=== PATIENT | female | born 1960 | race Caucasian/White ===

== ENCOUNTER 2018-04-08 13:25 | Observation (INO) | payer BC ==
[2018-04-08 14:20] LABS: #Lymphocytes 1.9 thou/uL (1.20-3.40); #Monocytes 0.3 thou/uL (0.11-0.59); %Basophils 0.5 % (0.0-1.0); %Eosinophils 0.1 % (0.0-10.0); %Lymphocytes 46.1 % (21.0-51.0); %Monocytes 6.7 % (0.0-10.0); %Neutrophils 46.7 % (42.0-75.0); Hemoglobin 13.6 g/dL (12.0-16.0); Mean Corpuscular HGB CONC 33.5 g/dL (32.0-36.0); Mean Corpuscular Hemoglobin 30.4 pg (27.0-31.0); Mean Corpuscular Volume 90.6 fL (78.0-98.0); Mean Platelet Volume 7.4 fL (7.4-10.4); Platelet Count 270 thou/uL (130-400); RBC Distribution Width 11.6 % (11.5-14.5); Red Blood Cell (RBC) Count 4.47 mill/uL (4.20-5.40); White Blood Cell (WBC) Count 4.2 thou/uL (4.8-10.8)
--- NOTE | 2018-04-08 14:38 | RAD ---
PORTABLE CHEST: Date: 04/08/18 HISTORY: Fall with back pain. FINDINGS: Heart size and mediastinum are within normal limits. Lungs are clear of infiltrates. No rib fractures identified. IMPRESSION: No active intrathoracic disease. POS: [facility]
[2018-04-08 14:44] LABS: ALT (SGPT) 23 U/L (8-55); AST (SGOT) 22 U/L (5-34); Albumin 4.1 g/dL (3.5-5.0); Alkaline Phosphatase 80 U/L (40-150); Anion Gap 14 mmol/L (10-20); BUN (Urea Nitrogen) 14 mg/dL (9.8-20.1); Bilirubin, Total 0.4 mg/dL (0.2-1.2); Calc. Creatinine Clearance 0 mL/min (70-130); Calcium 9.6 mg/dL (7.8-10.44); Carbon Dioxide 24 mmol/L (22-29); Chloride 105 mmol/L (98-107); Estimated GFR-MDRD 69; Glucose 169 mg/dL (70-105); Lipase 28 U/L (8-78); Potassium 3.8 mmol/L (3.5-5.1); Protein, Total 7.1 g/dL (6.0-8.3); Sodium 139 mmol/L (136-145)
[2018-04-08] MEDS ORDERED: Aspirin Chewable 81 MG TAB ONE (14:49)
--- NOTE | 2018-04-08 16:46 | MRI ---
LUMBAR SPINE MRI NONCONTRAST: 04/08/18 INDICATION: Emergency exam. Progressive low back pain, multiple falls. Leg weakness. FINDINGS: Multilevel end plate degenerative change with Schmorl's node formation and Modic degenerative signal alteration, predominantly type I. There are multilevel end plate osteophytes with associated disc spa ce narrowing throughout the lumbar spine. Conus medullaris terminates at the L1 level. There is multi level bilateral moderate facet osteoarthritis. T12-L1: There is a left paracentral disc protrusion with slight effacement of ventral thecal sac. No direct mass effect upon conus medullaris. L1-2: Broad based disc osteophyte results in mild central canal stenosis. No high grade foraminal com promise. L2-3: Mild central canal stenosis results in broad based disc osteophyte. This does result in crowdin g of the bilateral traversing L3 nerve roots. There is minimal narrowing of the left neural foramen. No significant right frontal stenosis. L3-4: There is mild retrolisthesis with associated broad based disc osteophyte. This results in mild to moderate central canal stenosis. There is mild right foraminal narrowing. No high grade left rusty inal stenosis. L4-5: There is moderate central canal stenosis with crowding of the bilateral traversing L5 nerve marlin ts as the result of broad based disc osteophyte combined with bilateral degenerative facet hypertroph y. Moderate bilateral neural foraminal stenosis present. L5-S1: There is no significant central canal or neural foraminal stenosis. IMPRESSION: Multilevel degenerative change of the lumbar spine, as detailed above. POS: [facility]
--- NOTE | 2018-04-08 17:12 | PDOC.FPRHP ---
- History of Present Illness Chief Complaint: Chest pain History of Present Illness: This is a 58 yo female with a pmh of HLD, HTN, kidney stones, diverticulitis who present to the ED from Dr. Romero office (PCP) with a cc of chest pain and multiple falls. She reports chest pain for the last few months that comes and goes. She reports the pain mainly as a pressure, "like someone squeezing my heart." She states the pain is about a 4/10 with associated sweating. During the episodes she denies radiation, nausea, SOB, syncope, or dizziness. She reports the pain is better with rest. She states that for the last three months , she has been out of her blood pressure medication due to insurance. Pt reports mulitiple episodes of her leg giving out. She reports associated lower leg paresthesias. Pt also reports recent episodes of urinary and bowel incontinence. She reports lower leg weakness, worse in the right leg. ED Course: Aspirin 325 - Allergies/Adverse Reactions Allergies Allergy/AdvReac Type Severity Reaction Status Date / Time acetaminophen [From [place]] Allergy Verified 04/08/18 19:04 hydrocodone [From [place]] Allergy Verified 04/08/18 19:04 lisinopril Allergy Verified 04/08/18 19:04 Penicillins Allergy Verified 04/08/18 19:04 - Home Medications Medication Instructions Recorded Confirmed Type Aspirin 325 mg PO DAILY 04/08/18 04/08/18 History Atorvastatin Calcium [Lipitor] 20 mg PO DAILY 04/08/18 04/08/18 History Cholecalciferol (Vitamin D3) 5,000 unit PO DAILY 04/08/18 04/08/18 History [Vitamin D3] Gabapentin 900 mg PO HS 04/08/18 04/08/18 History Melatonin 10 mg PO HS PRN 04/08/18 04/08/18 History Meloxicam [Mobic] 15 mg PO DAILY 04/08/18 04/08/18 History Metoprolol Succinate [Toprol XL] 100 mg PO DAILY 04/08/18 04/08/18 History Vitamin B Complex [B Complex] 1 tablet PO DAILY 04/08/18 04/08/18 History amLODIPine Besylate [Norvasc] 10 mg PO DAILY 04/08/18 04/08/18 History clonazePAM [Klonopin] 0.5 mg PO HS 04/08/18 04/08/18 History traMADol HCl [Tramadol HCl] 50 mg PO DAILY 04/08/18 04/08/18 History - History PMHx: Diverticulitis, HLD, HTN PSHx: Hysterectomy, lap band FHx: Multiple 1st degree family members with MIs ranging from age 40-60 Social: Denies MARLENI - Review of Systems General: reports: fatigue (with chest pain). denies: fever/chills, weight/ appetite/sleep changes, night sweats Eyes: denies: eye pain, vision changes ENT: denies: nasal congestion, rhinorrhea Respiratory: denies: cough, congestion, shortness of breath Cardiovascular: reports: chest pain. denies: palpitation, edema, paroxysmal nocturnal dyspnea Gastrointestinal: denies: nausea, vomiting, diarrhea, constipation Genitourinary: reports: incontinence. denies: dysuria Skin: denies: rashes, lesions Musculoskeletal: denies: pain, tenderness, stiffness Neurological: reports: numbness, weakness. denies: syncope Psychological: reports: anxiety, depression - Vital signs BP: 157/79 HR: 65 RR: 18 Tmax: 98.2 Pox: 97% on ra Wt: 102 kg - Physical Exam Constitutional: NAD, awake, alert and oriented, well developed HEENT: normocephalic and atraumatic, PERRLA, EOMI, conjunctiva clear, TM's clear and intact, normal nasal mucosa, MMM, oropharynx clear, good dention Neck: supple, FROM, trachea midline, no LAD, no JVD Chest: no lesions, other (left sided TTP, different from pressure felt before) Heart: RRR, normal S1/S2, no murmurs/rubs/gallops, pulses present Lungs: CTAB, no respiratory distress, good air movement, no wheezing, no retractions Abdomen: soft, non-tender, bowel sounds present, no masses/distention, no hernias Musculoskeletal: normal structure, normal tone, other (Normal UE strength, 3/5 right LE, 4/5 left LE) Neurological: CN II-XII intact, DTRs 2+, other (decreased sensation over bottom of feet,) Skin: no rash/lesions, good turgor, capillary refill <2 seconds FMR H&P: Results - Labs Result Diagrams: 04/08/18 14:05 04/08/18 14:05 Lab results: WBC 4.2 thou/uL (4.8-10.8) L 04/08/18 14:05 Hgb 13.6 g/dL (12.0-16.0) 04/08/18 14:05 Hct 40.5 % (36.0-47.0) 04/08/18 14:05 MCV 90.6 fL (78.0-98.0) 04/08/18 14:05 Plt Count 270 thou/uL (130-400) 04/08/18 14:05 Neutrophils % 46.7 % (42.0-75.0) 04/08/18 14:05 Sodium 139 mmol/L (136-145) 04/08/18 14:05 Potassium 3.8 mmol/L (3.5-5.1) 04/08/18 14:05 Chloride 105 mmol/L (98-107) 04/08/18 14:05 Carbon Dioxide 24 mmol/L (22-29) 04/08/18 14:05 BUN 14 mg/dL (9.8-20.1) 04/08/18 14:05 Creatinine 0.85 mg/dL (0.6-1.1) 04/08/18 14:05 Glucose 169 mg/dL (70-105) H 04/08/18 14:05 Calcium 9.6 mg/dL (7.8-10.44) 04/08/18 14:05 Total Bilirubin 0.4 mg/dL (0.2-1.2) 04/08/18 14:05 AST 22 U/L (5-34) 04/08/18 14:05 ALT 23 U/L (8-55) 04/08/18 14:05 Alkaline Phosphatase 80 U/L (40-150) 04/08/18 14:05 Serum Total Protein 7.1 g/dL (6.0-8.3) 04/08/18 14:05 Albumin 4.1 g/dL (3.5-5.0) 04/08/18 14:05 Lipase 28 U/L (8-78) 04/08/18 14:05 - EKG Interpretation EKG: NSR - Radiology Interpretation Other Status: report reviewed by me (MRI: multilevel DJD of lumbar spine, mild foramenal stenosis at multiple levels, no high grade foraminal stenosis seen) FMR H&P: A/P - Problem List (1) Atypical chest pain Current Visit: Yes Status: Acute Code(s): R07.89 - OTHER CHEST PAIN (2) Peripheral neuropathy Current Visit: Yes Status: Acute Code(s): G62.9 - POLYNEUROPATHY, UNSPECIFIED (3) HTN (hypertension) Current Visit: Yes Status: Acute Code(s): I10 - ESSENTIAL (PRIMARY) HYPERTENSION - Plan This is a 58 yo female with a pmh of HLD, HTN, kidney stones, diverticulitis Atypical chest pain rule out -Admit to tele obs -EKG NSR -Heart score of 4 -Trop negative x1, trend x2 -Nuclear stress test tomorrow morning R/O cauda equina syndrome -MRI shows no evidence of cauda equina -Pt to follow up outpt with neurology -Continue home meds for peripheral neuropathy HTN -Continue home meds HLD -Continue home meds Code: Full Prophylaxis: none Family: none at bedside Disposition: home in 1-2 days PCP: Dr Tariq FMR H&P: Upper Level - Pertinent history Magdalena Liu is a 58 year old female with a past medical history of hypertension, hyperlipidemia, and generalized anxiety disorder who presents to the ED for weakness, incontinence and chest pain. Patient was seen earlier today by her PCP who directed her to ER for evaluation for chest pain and possible cauda equine syndrome. She has a past history of chronic neck and back pain. She reports bilateral numbness from her feet to her calves. She also reports incontinence and urinary drippling. Regarding chest pain, she reports getting chest pressure when her blood pressures are elevated. She was out of her blood pressure medication for 3 months and restarted her meds 4 days ago. Associated with dyspnea and occasional diaphoresis. EKG in clinic was normal. - Pertinent findings Vitals: BP: 148/90 P: 67 RR: 18 T: 98.2 O2: 97% on RA. Physical Exam: General: Alert and oriented x 3; in no distress. No active chest pain currently. Heart: Regular rate and rhythm, no murmurs, rubs, or gallops. No reproducible anterior chest wall tenderness to palpation. Lungs:clear to auscultation bilaterally. No crackles, wheezes or rhonchi. Abdomen: Soft, non-tender to palpation Neuro: CN II-XII intact grossly. Decreased sensation extending from soles of feet to mid calf; 4/5 lower extremity strength bilaterally. 5/5 upper extremity strength. - Plan Date/Time: 04/08/18 1712 I, Shanique Gray, have evaluated this patient and agree with findings/plan as outlined by paralegal internship resident. Pertinent changes/additions are listed here. Assessment and plan * Concern for cauda equina syndrome. MRI essentially rules out cauda equina syndrome. Will rule out causes of polyneuropahty with laboratory workup to include A1C, TSH, B12, ESR. * Atypical chest pain possibly demand ischemia from elevated BP. EKG negative. Heart score of 4. Will trend tropnonins. Risk stratification with stress test in AM. * Generalized anxiety disorder - pt states symptoms are currently under control. No longer on Effexor. * Hypertension - resume home meds * Hyperlipidemia - resume Lipitor * Chronic pain - resume Tramadol Code status: DNR (discussed with patient at bedside) DVT prophylaxis: SCDs. Addendum - Attending - Attending Attestation Date/Time: 04/08/18 9984 I personally evaluated the patient and discussed the management with Dr. Morley. I agree with the History, Examination, Assessment and Plan documented above with any addition or exceptions noted below - 58 yo female with PMH of HTN, nephrolithiasis, HLD, and diverticular disease sent from PCP's office for evaluation of chest pain and multiple falls. Patient states that she has been having intermittent chest pressure. No associated SOB, N/V, radiation of pain. ( +) diaphoresis. Has noted the pressure when her BP is elevated. Relieved by rest. Patient reports that she has been having falls for >6 months. States that her right leg just gives out. Reports low back pain which radiates down lateral aspect of right leg. Had MRI today. PMH/PSH/ALL/Meds reviewed and agree with resident's documentation. T98.7 P79 BP 156/82 97% RA Exam repeated by me and agree with resident's findings. Labs: WBC=4.2, H/H=13.6/40.5, Tno=827, Na= 139, K=3.8, Ir=518, CO2=24, BUN/Cr=14/0.85, Pret=635, trop I<0.010 x 3, TSH= 1.7533m AST/ALT=22/23, EKG- NSR, no ST changes. A/P: 1) Chest pain with multiple risk factors - Heart score = 4. Cardiac enzymes negative. Will plan for stress test in AM. 2) HTN- continue home meds and adjust as needed. 3) HLD- continue home meds, 4) Lumbar radiculopathy - continue home meds and plan for further workup as outpatient; no evidence of cauda equina syndrome on MRI.
[2018-04-08 18:48] LABS: Hemoglobin A1c 5.6 % (4.0-6.0)
[2018-04-08] MEDS ORDERED: Ondansetron PF 4 MG/2 ML Vial IVP PRN (22:38)
[2018-04-08] MEDS ORDERED: Acetaminophen 325 MG TAB PO PRN (22:38)
[2018-04-08] MEDS ORDERED: Ondansetron ODT 4 MG TAB PO PRN (22:38)
[2018-04-08] MEDS ORDERED: Melatonin 3 MG TAB PO PRN (22:45)
[2018-04-08] MEDS ORDERED: clonazePAM 0.5 MG TAB PO SCH (22:45)
[2018-04-08] MEDS ORDERED: Famotidine 20 MG TAB PO SCH (22:45)
[2018-04-08] MEDS: Sodium Chloride 0.9% 1,000 ML IV SCH (22:55)
[2018-04-08] MEDS ORDERED: Gabapentin 300 MG CAP PO SCH (23:00)
[2018-04-08 23:29] VITALS: BMI 36.6
--- NOTE | 2018-04-09 05:38 | PDOC.FM ---
- Subjective Subjective: Pt reports minimal chest pain overnight. She states that she had trouble sleeping due to some right hip pain. She denies nausea, vomiting, or abdominal pain. - Objective MAR Reviewed: Yes Vital Signs & Weight: Vital Signs (12 hours) Temp Pulse Resp BP Pulse Ox 04/08/18 22:38 97 04/08/18 22:04 98.0 F 68 18 137/88 97 Weight Admit Weight 106.095 kg Weight 106.095 kg Result Diagrams: 04/08/18 14:05 04/08/18 14:05 Phys Exam - Physical Examination Constitutional: NAD HEENT: moist MMs Neck: no JVD, full ROM Respiratory: no wheezing, no rales, clear to auscultation bilateral Cardiovascular: RRR, no significant murmur, no rub Gastrointestinal: soft, non-tender, no distention, positive bowel sounds Musculoskeletal: no edema, pulses present 3/5 strenght in RLE, 4/5 in LLE decreased sensation in plantar feet bilaterally Psychiatric: normal affect, A&O x 3 Skin: cap refill <2 seconds Dx/Plan (1) Atypical chest pain Code(s): R07.89 - OTHER CHEST PAIN Status: Acute (2) Peripheral neuropathy Code(s): G62.9 - POLYNEUROPATHY, UNSPECIFIED Status: Acute (3) HTN (hypertension) Code(s): I10 - ESSENTIAL (PRIMARY) HYPERTENSION Status: Acute - Plan Plan: This is a 58 yo female with a pmh of HLD, HTN, kidney stones, diverticulitis Atypical chest pain rule out -Admit to tele obs -EKG NSR -Heart score of 4 -Trop negative x3 -Nuclear stress test tomorrow morning R/O cauda equina syndrome -MRI shows no evidence of cauda equina -Pt to follow up outpt with neurology -Continue home meds for peripheral neuropathy HTN -Continue home meds HLD -Continue home meds
[2018-04-09] MEDS: Sodium Chloride 0.9% 1,000 ML IV SCH (08:56)
[2018-04-09] MEDS ORDERED: Famotidine 20 MG TAB PO SCH (09:00)
[2018-04-09] MEDS ORDERED: Meloxicam 15 MG TAB PO SCH (09:00)
[2018-04-09] MEDS ORDERED: Atorvastatin Calcium 20 MG TAB PO SCH (09:00)
[2018-04-09] MEDS ORDERED: Stress 600 With Zinc 1 TAB PO SCH (09:00)
[2018-04-09] MEDS ORDERED: Amlodipine 10 MG TAB PO SCH (09:00)
[2018-04-09] MEDS ORDERED: ADENOSINE 60 MG/20 ML VIAL ONE (10:18)
--- NOTE | 2018-04-09 11:20 | PRG ---
DATE OF SERVICE: 04/09/2018 SUBJECTIVE: Ms. Liu is a 58-year-old white female patient with history of hypertension. She has been admitted with some pressure-type chest pain. We will perform stress Myoview. If possible, consult Cardiology. If negative, she will be ready for discharge. Her LS MRI demonstrated no evidence of cauda equina. Job ID: [id number]
[2018-04-09 12:04] VITALS: BP 133/83; TEMP 98.3
--- NOTE | 2018-04-09 13:23 | NM ---
RADIONUCLIDE STRESS ONLY MYOCARDIAL PERFUSION SCAN WITH CT ATTENUATION CORRECTION AND SPECT IMAGING LEFT VENTRICULAR WALL MOTION EVALUATION AND EJECTION FRACTION: HISTORY: Chest pain. FINDINGS: Adenosine protocol. Total test time: 4:00. There is homogeneous uptake of radiotracer throughout th e left ventricular myocardium. No focal perfusion defect. QGS analysis of gated SPECT images shows no focal wall motion abnormalities. Ejection fraction calculated at 67%. IMPRESSION: Normal myocardial perfusion scan, stress only. Normal left ventricular ejection fraction. POS: [facility]
[2018-04-09] MEDS ORDERED: clonazePAM 0.5 MG TAB PO SCH (21:00)
[2018-04-09] MEDS ORDERED: Gabapentin 300 MG CAP PO SCH (21:00)
--- NOTE | 2018-04-12 10:19 | DIS ---
DATE OF ADMISSION: 04/08/2018 DATE OF DISCHARGE: 04/09/2018 ADMITTING ATTENDING: Brinda Jiang M.D. DISCHARGING ATTENDING: Anselmo Montero M.D. RESIDENT: Phong Morley DO. CONSULTS: None. PROCEDURES: 1. Exercise stress test showing no significant change. 2. Nuclear stress test showed no myocardial perfusion and normal left ventricular ejection fraction. 3. MRI lumbar spine shows multilevel degenerative changes of the lumbar spine. 4. Portable chest x-ray shows no acute intrathoracic disease. PRIMARY DIAGNOSES: 1. Chest pain rule out, found not to be cardiac in nature. 2. Rule out cauda equina syndrome with no signs of cauda equina on MRI. SECONDARY DIAGNOSES: 1. Hypertension. 2. Hyperlipidemia. DISCHARGE MEDICATIONS: 1. Amlodipine 2 mg p.o. daily. 2. Aspirin 325 mg p.o. at bedtime. 3. Atorvastatin 20 mg p.o. at bedtime. 4. Vitamin D3 5000 units p.o. daily. 5. Klonopin 0.5 mg p.o. at bedtime. 6. Gabapentin 900 mg p.o. at bedtime. 7. Melatonin 2 mg p.o. at bedtime. 8. Meloxicam 15 mg p.o. daily. 9. Metoprolol 100 mg p.o. at bedtime. 10. Tramadol 50 mg p.o. daily. 11. Vitamin B complex one tablet daily. DISCONTINUED MEDICATIONS: None. BRIEF HOSPITAL COURSE: This is a 58-year-old female with a past medical history of hyperlipidemia, hypertension, kidney stones, diverticulitis who presents to the ER from Dr. Tariq's office who is her PCP with a chief complaint of chest pain and multiple falls. She reports chest pain for the last few months. It comes and goes. She reports the pain mainly as pressure like somebody squeezing her heart. The patient was admitted to the hospital, given nitroglycerin and morphine p.r.n. for chest pain and underwent the nuclear stress test as listed above. The patient was found to not have any signs of reversible cardiac injury. The patient was also being worked up for cauda equina syndrome in which she was found to not have any major impingement on her cauda equina or on any major nerves per MRI. Cauda equina will be worked up outpatient. At the time of discharge, patient was stable. Vital signs were stable. DISCHARGE INSTRUCTIONS: Location: Home. Diet: Heart healthy. Activity: As tolerated. Followup: With Dr. Tariq, PCP in 1-2 weeks and with Neurology per Dr. Tariq. PCP. Job ID: [id number] MTDKevin
--- NOTE | 2018-04-12 13:35 | STRESS ---
Acquisition Time: 2018-04-09 09:34:51 Total Exercise Time: 00:04:00 Test Indications: CHEST PAIN Medications: Protocol: ADENOSINE Max HR: 093 BPM 57% of Pred: 163 BPM Max BP: 148/082 mmHG Max Work Load: 1.0 METS RESTING ECG: NORMAL SINUS RHYTHM AT 67 BPM SYMPTOMS: DYSPNEA AND LEFT ARM PAIN NORMAL BP RESPONSE ECTOPY: NONE ECG STRESS: NO SIGNIFICANT CHANGES INTERPRETATION: AWAIT NUCLEAR IMAGES FOR DEFINITIVE DIAGNOSIS Confirmed by SHEYLA GO (2), video news editor NEL UMANZOR ([id number]) on 04/12/2018 1:34:50 PM Referred By: DO Luciana MCQUEEN Confirmed By:SHEYLA GO
== END 2018-04-09 14:38 | disposition home or self-care (01) ==
LOC: ERS 13:25 → 2SW 16:45
PROVIDERS: ADMIT Family Medicine; ATTEND Family Medicine
DX: R07.89 Other chest pain (principal); I10 Essential (primary) hypertension; E78.5 Hyperlipidemia, unspecified; K57.92 Diverticulitis of intestine, part unspecified, without perforation or abscess without bleeding; G62.9 Polyneuropathy, unspecified; F41.1 Generalized anxiety disorder; Z87.442 Personal history of urinary calculi; Z88.5 Allergy status to narcotic agent; Z88.0 Allergy status to penicillin; Z88.8 Allergy status to other drugs, medicaments and biological substances; Z79.891 Long term (current) use of opiate analgesic; Z79.82 Long term (current) use of aspirin; Z79.1 Long term (current) use of non-steroidal anti-inflammatories (NSAID); Z79.899 Other long term (current) drug therapy
CPT/HCPCS: 36415; 71045; 72148; 78452; 80053; 83036; 83690; 83735; 84425; 84443; 84484; 85025; 85652; 93005; 93017; 94760; 96360; 96361; A9500; G0378; J0153

== ENCOUNTER 2019-09-11 13:51 | Emergency (ER) | payer BC, OTHER ==
[2019-09-11] MEDS ORDERED: Acetaminophen 500 MG TAB ONE (14:29)
[2019-09-11 15:07] LABS: #Lymphocytes 1.5 thou/uL (1.20-3.40); #Monocytes 0.3 thou/uL (0.11-0.59); #Neutrophils 2.1 thou/uL (1.40-6.50); %Basophils 0.1 % (0.0-1.0); %Eosinophils 0.1 % (0.0-10.0); %Lymphocytes 37.6 % (21.0-51.0); %Monocytes 7.6 % (0.0-10.0); %Neutrophils 54.6 % (42.0-75.0); Hemoglobin 13.9 g/dL (12.0-16.0); Mean Corpuscular HGB CONC 33.4 g/dL (32.0-36.0); Mean Corpuscular Hemoglobin 31.6 pg (27.0-31.0); Mean Corpuscular Volume 94.5 fL (78.0-98.0); Mean Platelet Volume 7.6 fL (7.4-10.4); Platelet Count 217 thou/uL (130-400); RBC Distribution Width 12.3 % (11.5-14.5); Red Blood Cell (RBC) Count 4.41 mill/uL (4.20-5.40); White Blood Cell (WBC) Count 3.9 thou/uL (4.8-10.8)
[2019-09-11] MEDS ORDERED: Albuterol 200 PUFF (6.7GM INHALER) ONE (15:20)
[2019-09-11] MEDS ORDERED: Dexamethasone 10 MG/ML VIAL ONE (15:21)
--- NOTE | 2019-09-11 15:26 | RAD ---
XR Chest 1 View Portable History: Cough Comparison: Radiograph March 2018 Findings: Catheter projects over the left upper quadrant of the abdomen with the lap band. No conflue nt airspace consolidation, pneumothorax or effusion. Heart size is similar. No acute osseous abnormality. Impression: No acute intrathoracic abnormality.
[2019-09-11] MEDS ORDERED: Ketorolac Tromethamine 30 MG/ML VIAL ONE ×2 (15:27→16:20)
[2019-09-11 15:29] LABS: ALT (SGPT) 37 U/L (8-55); AST (SGOT) 37 U/L (5-34); Albumin 4.2 g/dL (3.5-5.0); Alkaline Phosphatase 77 U/L (40-110); Anion Gap 14 mmol/L (10-20); BUN (Urea Nitrogen) 10 mg/dL (9.8-20.1); Bilirubin, Total 0.4 mg/dL (0.2-1.2); Calc. Creatinine Clearance 0 mL/min (70-130); Calcium 9.2 mg/dL (7.8-10.44); Carbon Dioxide 27 mmol/L (22-29); Chloride 104 mmol/L (98-107); Estimated GFR-MDRD 69; Globulin 2.8 g/dL (2.4-3.5); Glucose 118 mg/dL (70-105); Potassium 3.9 mmol/L (3.5-5.1); Sodium 141 mmol/L (136-145)
[2019-09-12 12:01] LABS: SARS-CoV-2 MS2 Positive; SARS-CoV-2 N Gene Positive; SARS-CoV-2 S Gene Positive; SARS-CoV-2 by NAA DETECTED (NotDetected); SARS-CoV-2 orf1ab Positive
== END 2019-09-11 16:38 | disposition home or self-care (01) ==
LOC: ERS 13:51
DX: U07.1 COVID-19 (principal); E78.5 Hyperlipidemia, unspecified; I10 Essential (primary) hypertension; F32.9 Major depressive disorder, single episode, unspecified; Z79.899 Other long term (current) drug therapy; Z79.82 Long term (current) use of aspirin
CPT/HCPCS: 71045; 80053; 85025; 87040; 87635; 94664; 96374; 96375; J1100; J1885; U0003

== ENCOUNTER 2019-11-16 13:49 | Outpatient (CLI) | payer BC ==
--- NOTE | 2019-11-16 15:39 | RAD ---
LUMBAR SPINE: 11/16/19 Total of five views. HISTORY: Back pain. Lumbar vertebrae maintain height. Degenerative disc changes are noted with loss of disc space and vac uum phenomenon at L2-3. Loss of disc space at L3-4. Slight posterolisthesis at L3-4. Degenerative spu rring is most pronounced at L2 and L3. Facet hypertrophy is prominent at L4-5 and L5-S1. Posterolisth esis at L3-4 does not significantly change with flexion or extension. IMPRESSION: Moderate degenerative changes lumbar spine as described. POS: [facility]
--- NOTE | 2019-11-16 15:50 | MRI ---
MRI LUMBAR SPINE WITHOUT CONTRAST: Date: 11/16/2019 INDICATINO: Low back pain. Right hip pain. Comparison made to MRI of lumbar spine of 04/08/2018. FINDINGS: Lumbar vertebra maintain height. Moderate degenerative changes are again noted. Osteophytes in the mena mbar vertebra are again seen and appear unchanged from prior exam. Degenerative disc changes at multi ple levels are noted with loss of disc space at L1-2, L2-3, and L3-4 levels, which appear stable. The slight posterolisthesis at L3-4 is unchanged. T12-L1: There is a posterior disc protrusion centrally with slight superior an inferior extension of the protruded disc. This has a similar appearance to prior study. It indents the anterior thecal sac centrally. No significant impingement on the conus or cauda equina. No significant central canal or foraminal stenosis. L1-2: Broad based disc bulge flattens the thecal sac. Facet hypertrophy. Mild central canal stenosis which is stable from prior exam. L2-3: Diffuse disc bulge flattens the thecal sac. Prominent facet hypertrophy. Moderate central dipika l stenosis. No significant foraminal stenosis. Stable from prior exam. L3-4: There is a broad based disc bulge with small central protrusion and associated with annular fi ssure. This flattens the anterior thecal sac. Facet hypertrophy. Posterior epidural fat. These change s compress the thecal sac resulting in moderate central canal stenosis. Mild foraminal narrowing seco ndary to the disc bulge. Findings are similar to the prior exam. L4-5: Diffuse disc bulge. Prominent facet hypertrophy. Posterior epidural fat. Mild to moderate cent ral canal stenosis. Left foraminal stenosis due to asymmetric disc and facet hypertrophy. L5-S1: No significant disc bulge. Prominent facet hypertrophy. No central canal stenosis. A disc ost eophyte complex projects laterally to the left and appears to contact the exiting left L5 nerve root. IMPRESSION: Multilevel degenerative disc changes with disc bulges and protrusions as described above. POS: [facility]
== END 2019-11-16 13:50 | disposition home or self-care (01) ==
LOC: SCSMRI 13:49
PROVIDERS: ATTEND Specialist
DX: M51.16 Intervertebral disc disorders with radiculopathy, lumbar region (principal); M48.061 Spinal stenosis, lumbar region without neurogenic claudication; M47.26 Other spondylosis with radiculopathy, lumbar region; M51.25 Other intervertebral disc displacement, thoracolumbar region
CPT/HCPCS: 72110; 72148

== ENCOUNTER 2022-03-06 09:26 | Outpatient (CLI) | payer OTHER | END 2022-03-06 09:27 | disposition home or self-care (01) | LOC: TBSIIMAG 09:26 | PROVIDERS: ATTEND Surgery | DX: M43.16 Spondylolisthesis, lumbar region (principal); M50.30 Other cervical disc degeneration, unspecified cervical region; M47.812 Spondylosis without myelopathy or radiculopathy, cervical region; M47.816 Spondylosis without myelopathy or radiculopathy, lumbar region; Z98.890 Other specified postprocedural states | CPT/HCPCS: 72050; 72120; 72148 ==